=== PATIENT | female | born 1960 | race Caucasian/White ===

== ENCOUNTER 2018-03-19 00:19 | Emergency (ER) | payer SELFPAY ==
[2018-03-19] MEDS ORDERED: FLUORESCEIN SODIUM 0.6 MG/WRAP ONE (00:52)
[2018-03-19] MEDS ORDERED: TETRACAINE HCL 0.5% 2ML OPTH ONE (00:52)
--- NOTE | 2018-03-19 01:14 | ER ---
Nurse's Notes [facility] Name: Lorin Chamberlain Age: 58 yrs Sex: Female : 1960 Arrival Date: 03/19/2018 Time: 00:21 Bed 13 Private MD: Matthew Rosas T Diagnosis: Ocular pain, right eye Presentation: 03/19 00:54 Presenting complaint: Patient states: she was cleaning her face of make-up and rubbed bb her right eye then her right eye became red and very painful with throbbing down the side of her face to her lip. Transition of care: patient was not received from another setting of care. Onset of symptoms was March 19, 2018. Risk Assessment: Do you want to hurt yourself or someone else? Patient reports no desire to harm self or others. Initial Sepsis Screen: Does the patient meet any 2 criteria? No. Patient's initial sepsis screen is negative. Does the patient have a suspected source of infection? No. Patient's initial sepsis screen is negative. Care prior to arrival: None. 00:54 Method Of Arrival: Ambulatory bb 00:54 Acuity: SUSHIL 4 bb Historical: - Allergies: 00:56 No Known Allergies; bb - Home Meds: 00:56 None [Active]; bb - PMHx: 00:56 None; bb - PSHx: 00:56 macular pucker surgery right eye; bb - Immunization history:: Adult Immunizations up to date. - Social history:: Smoking status: Patient/guardian denies using tobacco. - Ebola Screening: : No symptoms or risks identified at this time. - Family history:: not pertinent. - Hospitalizations: : No recent hospitalization is reported. Screenin:00 Abuse screen: Denies threats or abuse. Nutritional screening: No deficits noted. jb4 Tuberculosis screening: No symptoms or risk factors identified. Fall Risk None identified. Assessment: 01:00 General: Appears in no apparent distress. uncomfortable, Behavior is calm, cooperative, jb4 appropriate for age. Pain: Complains of pain in right eye Pain currently is 6 out of 10 on a pain scale. Neuro: Level of Consciousness is awake, alert, obeys commands, Oriented to person, place, time, situation. Cardiovascular: Patient's skin is warm and dry. Respiratory: Airway is patent Respiratory effort is even, unlabored, Respiratory pattern is regular, symmetrical. GI: No signs and/or symptoms were reported involving the gastrointestinal system. : No signs and/or symptoms were reported regarding the genitourinary system. EENT: Sclera/Cornea are reddened in outer aspect of conjuctiva of right eye, iris of right eye and inner aspect of conjuctiva of right eye. Derm: Skin is intact, Skin is pink, warm \T\ dry. Musculoskeletal: Circulation, motion, and sensation intact. Vital Signs: 00:56 BP 149 / 91; Pulse 79; Resp 18 S; Temp 97.9(O); Pulse Ox 97% on R/A; Weight 101.15 kg bb (R); Height 5 ft. 7 in. (170.18 cm) (R); Pain 7/10; 00:56 Body Mass Index 34.93 (101.15 kg, 170.18 cm) bb ED Course: 00:21 Patient arrived in ED. es 00:22 Matthew Rosas MD is Private Physician. es 00:49 Jaylan Butts MD is Attending Physician. rn 00:56 Triage completed. bb 00:56 Arm band placed on Patient placed in an exam room, on a stretcher, on pulse oximetry. bb 01:00 Patient has correct armband on for positive identification. Bed in low position. Call jb4 light in reach. Pulse ox on. NIBP on. 01:13 Susana Renee MD is Referral Physician. rn 01:13 Jamal Victor RN is Primary Nurse. jb4 01:25 No provider procedures requiring assistance completed. Patient did not have IV access jb4 during this emergency room visit. Administered Medications: 00:00 Drug: Tetracaine Drops 0.5 % 1 drops Route: Ophthalmic; Site: right eye; bb 00:00 Drug: Fluorescein Strip 1 strip Route: Ophthalmic; Site: right eye; bb 01:32 Drug: Gentamicin Drops 0.3 % 2 drops Route: Ophthalmic; Site: right eye; jb4 01:35 Follow up: Response: No adverse reaction jb4 Outcome: 01:13 Discharge ordered by . rn 01:25 Discharged to home ambulatory. jb4 01:25 Condition: stable 01:25 Discharge instructions given to patient, Instructed on discharge instructions, follow up and referral plans. medication usage, Demonstrated understanding of instructions, follow-up care, medications, Prescriptions given X 1. 01:36 Patient left the ED. jb4 Signatures: Cookie Walden Brenda, RN RN bb Jaylan Butts MD MD rn Bryson, James, RN RN jb4
--- NOTE | 2018-03-19 01:14 | EDPHYS ---
Physician Documentation [facility] Name: Lorin Chamberlain Age: 58 yrs Sex: Female : 1960 Arrival Date: 03/19/2018 Time: 00:21 Bed 13 Private MD: Matthew Rosas T ED Physician Jaylan Butts HPI: 03/19 01:09 This 58 yrs old Female presents to ER via Ambulatory with complaints of Eye rn Problem. 01:09 The patient is experiencing redness, tearing, The patient sustained Unknown. to the rn right eye. Onset: The symptoms/episode began/occurred just prior to arrival. Duration: the symptoms are continuous. Aggravated by blinking, rubbing, Alleviated by covering eye. Severity of symptoms: At their worst the symptoms were moderate in the emergency department the symptoms have improved. The patient has not experienced similar symptoms in the past. Reports right eye hurts, began shortly after using makeup removal wipes, no trauma, began with redness and tearing, no contacts, left eye not affected. No visual changes. Hurts with light. . Historical: - Allergies: 00:56 No Known Allergies; bb - Home Meds: 00:56 None [Active]; bb - PMHx: 00:56 None; bb - PSHx: 00:56 macular pucker surgery right eye; bb - Immunization history:: Adult Immunizations up to date. - Social history:: Smoking status: Patient/guardian denies using tobacco. - Ebola Screening: : No symptoms or risks identified at this time. - Family history:: not pertinent. - Hospitalizations: : No recent hospitalization is reported. ROS: 01:09 Constitutional: Negative for fever, chills, and weight loss, Eyes: + pain and redness, rn + clear drainage ENT: Negative for injury, pain, and discharge, Neuro: Negative for headache, weakness, numbness, tingling, and seizure. Exam: 01:09 Visual Acuity: Visual acuity is within normal limits. rn 01:09 Constitutional: This is a well developed, well nourished patient who is awake, alert, and in no acute distress. Head/Face: Normocephalic, atraumatic. Eyes: + injected sclera with clear drainage, no foreign body identified, lids everted, no corneal uptake of fourescein, neg melyssa sign, no lesions Vital Signs: 00:56 BP 149 / 91; Pulse 79; Resp 18 S; Temp 97.9(O); Pulse Ox 97% on R/A; Weight 101.15 kg bb (R); Height 5 ft. 7 in. (170.18 cm) (R); Pain 7/10; 00:56 Body Mass Index 34.93 (101.15 kg, 170.18 cm) bb MDM: 00:49 Patient medically screened. rn 01:09 Differential diagnosis: Corneal abrasion of Foreign body in Acute iritis of rn Differential diagnosis: Chemical conjunctivitis in. Data reviewed: vital signs, nurses notes. Counseling: I had a detailed discussion with the patient and/or guardian regarding: the historical points, exam findings, and any diagnostic results supporting the discharge/admit diagnosis, the need for outpatient follow up, to return to the emergency department if symptoms worsen or persist or if there are any questions or concerns that arise at home. Special discussion: I discussed with the patient/guardian in detail that at this point there is no indication for admission to the hospital. It is understood, however, that if the symptoms persist or worsen the patient needs to return immediately for re-evaluation. Based on the history and exam findings, there is no indication for further emergent testing or inpatient evaluation. I discussed with the patient/guardian the need to see the opthamologist for further evaluation of the symptoms. 01:09 ED course: symptoms resolved with tetracaine. rn 03/19 01:08 Order name: Eye Tray; Complete Time: 01:09 Administered Medications: 00:00 Drug: Tetracaine Drops 0.5 % 1 drops Route: Ophthalmic; Site: right eye; bb 00:00 Drug: Fluorescein Strip 1 strip Route: Ophthalmic; Site: right eye; bb 01:32 Drug: Gentamicin Drops 0.3 % 2 drops Route: Ophthalmic; Site: right eye; jb4 01:35 Follow up: Response: No adverse reaction jb4 Disposition: 03/19/18 01:13 Discharged to Home. Impression: Ocular pain, right eye. - Condition is Stable. - Discharge Instructions: Chemical Conjunctivitis, Adult, How to Use Eye Drops and Eye Ointments. - Prescriptions for Vigamox 0.5 % Ophthalmic Drops - instill 1 drop by OPHTHALMIC route every 8 hours for 7 days; 5 milliliter. - Medication Reconciliation Form, Thank You Letter, Antibiotic Education, Prescription Opioid Use form. - Follow up: Susana Renee MD; When: Today; Reason: Recheck today's complaints, Re-evaluation by your physician. - Problem is new. - Symptoms have improved. Signatures: Yani Niño RN RN bb Jaylan Butts MD MD rn Bryson, James, RN RN jb4 Corrections: (The following items were deleted from the chart) 01:36 01:13 03/19/2018 01:13 Discharged to Home. Impression: Ocular pain, right eye. jb4 Condition is Stable. Forms are Medication Reconciliation Form, Thank You Letter, Antibiotic Education, Prescription Opioid Use. Follow up: Susana Renee; When: Today; Reason: Recheck today's complaints, Re-evaluation by your physician. Problem is new. Symptoms have improved. rn
[2018-03-19] MEDS ORDERED: TOBRAMYCIN SULF 80 MG/2 ML VIAL ONE (01:26)
[2018-03-19] MEDS ORDERED: GENTAMICIN 0.3% OPTH DROP 5ML ONE (01:27)
[2018-03-19 02:32] VITALS: BP 149/91; TEMP 97.9; O2SAT 97
== END 2018-03-19 01:36 | disposition home or self-care (01) ==
LOC: ER 00:19
DX: H57.11 Ocular pain, right eye (principal)
CPT/HCPCS: 99283

== ENCOUNTER 2019-05-13 05:15 | Emergency (ER) | payer SELFPAY ==
--- OUTSIDE RECORDS SUMMARY | 2019-05-13 05:16 | XMS REPORT ---
:1960 [facility] Address [address] [place] [address] [address]. [address] [place] [address] Care Team Providers Name Role Phone Unavailable Unavailable Unavailable Problems This patient has no known problems. Allergies, Adverse Reactions, Alerts This patient has no known allergies or adverse reactions. Medications This patient has no known medications.
[2019-05-13] MEDS ORDERED: OXYMETAZOLINE HCL 0.05% 15ML NAS ONE (05:18)
[2019-05-13] MEDS ORDERED: ONDANSETRON 4 MG (ODT) TAB ONE (05:29)
[2019-05-13] MEDS ORDERED: SILVER NITRATE 1 APPL TOP ONE (06:29)
--- NOTE | 2019-05-13 06:45 | EDPHYS ---
Physician Documentation [facility] Name: Lorin Chamberlain Age: 59 yrs Sex: Female : 1960 Arrival Date: 05/13/2019 Time: 05:15 Bed 20 Private MD: ED Physician Jaylan Butts HPI: 05/13 05:26 This 59 yrs old Female presents to ER via Unassigned with complaints of nose rn bleed. 05:26 The patient presents with a nose bleed. Onset: The symptoms/episode began/occurred 1 rn hour(s) ago. Modifying factors: The symptoms are alleviated by nothing. the symptoms are aggravated by nothing. Severity of symptoms: At their worst the symptoms were mild in the emergency department the symptoms are unchanged. The patient has not experienced similar symptoms in the past. Reports approx 1 hour of nose bleeding, worse with blowing nose, reports intermittent clot comes out, hasn't really been holding pressure as much as catching her blood, on aspirin but hasn't taken in a couple of days. No other blood thinner. No trauma. This is her first nosebleed. . Historical: - Allergies: 05:36 No Known Allergies; - Home Meds: 05:36 duloxetine oral oral [Active]; atorvastatin oral oral [Active]; - PMHx: 05:36 High Cholesterol; Fibromyalgia; Rheumatoid Arthritis; - PSHx: 05:36 Cataract Surgery; Cholecystectomy; - Immunization history:: Adult Immunizations not up to date. - Coronavirus screen:: The patient has NOT traveled to [place], [place], or [place] in the past 14 days. - Family history:: not pertinent. - Social history:: Smoking status: Patient/guardian denies using. - Hospitalizations: : No recent hospitalization is reported. - Ebola Screening: : Patient negative for fever greater than or equal to 101.5 degrees Fahrenheit, and additional compatible Ebola Virus Disease symptoms Patient denies exposure to infectious person. ROS: 05:26 Constitutional: Negative for fever, chills, and weight loss, Eyes: Negative for injury, rn pain, redness, and discharge, ENT: + nosebleed Cardiovascular: Negative for chest pain, palpitations, and edema, Respiratory: Negative for shortness of breath, cough, wheezing, and pleuritic chest pain, Abdomen/GI: Negative for abdominal pain, nausea, vomiting, diarrhea, and constipation, MS/Extremity: Negative for injury and deformity, Skin: Negative for injury, rash, and discoloration, Neuro: Negative for headache, weakness, numbness, tingling, and seizure. Exam: 05:26 Constitutional: This is a well developed, well nourished patient who is awake, alert, rn and in no acute distress. Appears anxious. Head/Face: Normocephalic, atraumatic. ENT: + slow bleed from left nare with clot Cardiovascular: Regular rate and rhythm. No pulse deficits. Respiratory: No increased work of breathing, no retractions or nasal flaring. Vital Signs: 05:36 BP 140 / 97; Pulse 82; Resp 18; Temp 98; Pulse Ox 99% ; Weight 104.33 kg; Height 5 ft. wh 7 in. (170.18 cm); 06:30 BP 126 / 74; Pulse 70; Resp 18; Pulse Ox 99% on R/A; wh 05:36 Body Mass Index 36.02 (104.33 kg, 170.18 cm) Procedures: 06:29 Epistaxis treatment: A small amount of bleeding noted from Treated using Oxymetazoline rn sprays, cauterization, silver nitrate, direct pressure, nasal clamp, Bleeding stopped. MDM: 05:25 Patient medically screened. rn 06:29 Differential diagnosis: spontaneous epistaxis. Data reviewed: vital signs, nurses rn notes, and as a result, I will discharge patient. Counseling: I had a detailed discussion with the patient and/or guardian regarding: the historical points, exam findings, and any diagnostic results supporting the discharge/admit diagnosis, the need for outpatient follow up, to return to the emergency department if symptoms worsen or persist or if there are any questions or concerns that arise at home. Response to treatment: the patient's symptoms have resolved after treatment, and as a result, I will discharge patient. Special discussion: I discussed with the patient/guardian in detail that at this point there is no indication for admission to the hospital. It is understood, however, that if the symptoms persist or worsen the patient needs to return immediately for re-evaluation. Based on the history and exam findings, there is no indication for further emergent testing or inpatient evaluation. I discussed with the patient/guardian the need to see the ENT specialist for further evaluation of the symptoms. 06:43 ED course: bleeding stopped, feels much better. will dc home with instructions to care rn for nosebleed if returns. Also needs to f/u with ENT.. Administered Medications: 05:31 Drug: Zofran 4 mg Route: PO; wh 06:49 Follow up: Response: No adverse reaction; Nausea is decreased Disposition: 05/13/19 06:44 Discharged to Home. Impression: Epistaxis. - Condition is Stable. - Discharge Instructions: Nosebleed, Adult. - Medication Reconciliation Form, Thank You Letter, Antibiotic Education, Prescription Opioid Use form. - Follow up: Dana Chairez MD; When: As needed; Reason: Recheck today's complaints, Re-evaluation by your physician. - Problem is new. - Symptoms are resolved. Signatures: Jaylan Butts MD MD rn Habalo, Winsy Corrections: (The following items were deleted from the chart) 06:51 06:44 05/13/2019 06:44 Discharged to Home. Impression: Epistaxis. Condition is Stable. wh Forms are Medication Reconciliation Form, Thank You Letter, Antibiotic Education, Prescription Opioid Use. Follow up: Dana Chairez; When: As needed; Reason: Recheck today's complaints, Re-evaluation by your physician. Problem is new. Symptoms are resolved. rn
--- NOTE | 2019-05-13 06:45 | ER ---
Nurse's Notes [facility] Name: Lorin Chamberlain Age: 59 yrs Sex: Female : 1960 Arrival Date: 05/13/2019 Time: 05:15 Bed 20 Private MD: Diagnosis: Epistaxis Presentation: 05/13 05:32 Presenting complaint: EMS states: Pt started nose bleeding at around 4:00 am and wh wouldn't stopped. Pt denies taking blood thinners but takes baby aspirin everyday. Transition of care: patient was not received from another setting of care. Onset of symptoms was May 13, 2019. Risk Assessment: Do you want to hurt yourself or someone else? Patient reports no desire to harm self or others. Initial Sepsis Screen: Does the patient meet any 2 criteria? No. Patient's initial sepsis screen is negative. Does the patient have a suspected source of infection? No. Patient's initial sepsis screen is negative. Care prior to arrival: None. 05:32 Method Of Arrival: EMS: [facility] 05:32 Acuity: SUSHIL 4 Historical: - Allergies: 05:36 No Known Allergies; - Home Meds: 05:36 duloxetine oral oral [Active]; atorvastatin oral oral [Active]; - PMHx: 05:36 High Cholesterol; Fibromyalgia; Rheumatoid Arthritis; - PSHx: 05:36 Cataract Surgery; Cholecystectomy; - Immunization history:: Adult Immunizations not up to date. - Coronavirus screen:: The patient has NOT traveled to [place], [place], or [place] in the past 14 days. - Family history:: not pertinent. - Social history:: Smoking status: Patient/guardian denies using. - Hospitalizations: : No recent hospitalization is reported. - Ebola Screening: : Patient negative for fever greater than or equal to 101.5 degrees Fahrenheit, and additional compatible Ebola Virus Disease symptoms Patient denies exposure to infectious person. Screenin:37 Abuse screen: Denies threats or abuse. Denies injuries from another. Nutritional screening: No deficits noted. Tuberculosis screening: No symptoms or risk factors identified. Fall Risk None identified. Assessment: 05:38 General: Appears in no apparent distress. Behavior is calm, cooperative, appropriate wh for age. Pain: Denies pain. Neuro: Level of Consciousness is awake, alert, obeys commands, Oriented to person, place, time, situation, Appropriate for age. Cardiovascular: Capillary refill < 3 seconds. Respiratory: Airway is patent Respiratory effort is even, unlabored, Respiratory pattern is regular, symmetrical. GI: Abdomen is flat, non-distended. : No signs and/or symptoms were reported regarding the genitourinary system. EENT: nose bleed. Derm: Skin is intact, is healthy with good turgor, Skin is pink, warm \T\ dry. normal. Musculoskeletal: Circulation, motion, and sensation intact. 06:30 Reassessment: Patient appears in no apparent distress at this time. No changes from previously documented assessment. Patient and/or family updated on plan of care and expected duration. Pain level reassessed. Patient is alert, oriented x 3, equal unlabored respirations, skin warm/dry/pink. MD at bedside applying silver nitrate. Vital Signs: 05:36 BP 140 / 97; Pulse 82; Resp 18; Temp 98; Pulse Ox 99% ; Weight 104.33 kg; Height 5 ft. 7 in. (170.18 cm); 06:30 BP 126 / 74; Pulse 70; Resp 18; Pulse Ox 99% on R/A; wh 05:36 Body Mass Index 36.02 (104.33 kg, 170.18 cm) ED Course: 05:15 Patient arrived in ED. ds1 05:25 Jaylan Butts MD is Attending Physician. rn 05:31 Thea Washington is Primary Nurse. 05:34 Triage completed. 05:37 Patient has correct armband on for positive identification. Bed in low position. Call light in reach. Side rails up X 1. Pulse ox on. NIBP on. 05:39 Arm band placed on right wrist. 05:39 No provider procedures requiring assistance completed. Patient did not have IV access during this emergency room visit. 06:44 Dana Chairez MD is Referral Physician. rn Administered Medications: 05:31 Drug: Zofran 4 mg Route: PO; 06:49 Follow up: Response: No adverse reaction; Nausea is decreased Outcome: 06:44 Discharge ordered by MD. rn 06:51 Discharged to home ambulatory. 06:51 Condition: stable 06:51 Discharge instructions given to patient, Instructed on discharge instructions, follow up and referral plans. POC Demonstrated understanding of instructions, follow-up care, POC 06:51 Patient left the ED. Signatures: Padmini Guerrero ds1 Jaylan Butts MD MD rn Thea Washington
[2019-05-13 07:10] VITALS: TEMP 98; O2SAT 99
[2019-05-13 07:11] VITALS: BP 126/74
== END 2019-05-13 06:51 | disposition home or self-care (01) ==
LOC: ER 05:15
DX: R04.0 Epistaxis (principal); E78.00 Pure hypercholesterolemia, unspecified
CPT/HCPCS: 30901; 99283

== ENCOUNTER 2020-02-23 09:12 | Emergency (ER) | payer SELFPAY ==
--- OUTSIDE RECORDS SUMMARY | 2020-02-23 09:14 | XMS REPORT | Continuity of Care Document ---
:1960 Author Organization [facility] t Address [address] [place] [address] Dr. Esposito [address] [place] [id number] Care Team Providers Name Role Phone Unavailable Unavailable Unavailable Problems This patient has no known problems. Allergies, Adverse Reactions, Alerts This patient has no known allergies or adverse reactions. Medications This patient has no known medications. Procedures This patient has no known procedures. Results This patient has no known results.
[2020-02-23] MEDS ORDERED: BISACODYL 10 MG RECTAL SUPP ONE (10:02)
[2020-02-23] MEDS ORDERED: NA CHLORIDE 0.9% 1,000 ML ONE (10:03)
[2020-02-23] MEDS ORDERED: LACTULOSE 20 GM/30 ML UCUP ONE (10:03)
[2020-02-23 10:06] LABS: Absolute Lymphocytes (CBC) 1.6 K/uL (0.7-4.9); Basophils % 0.5 % (0-1.3); Hematocrit 40.3 % (36.0-45.0); Lymphocytes % 27.1 % (15.3-44.8); MPV 8.1 fL (7.6-11.3); RBC Red Blood Cell Count 4.49 M/uL (3.86-4.86)
[2020-02-23 10:33] LABS: ALT/SGPT 24 U/L (12-78); AST/SGOT 15 U/L (15-37); Albumin 3.7 g/dL (3.4-5.0); Alkaline Phosphatase 73 U/L (45-117); BUN Blood Urea Nitrogen 20 mg/dL (7-18); Bicarbonate 24 mmol/L (21-32); Bilirubin Direct < 0.1 mg/dL (0-0.2); Bilirubin Total 0.5 mg/dL (0.2-1.0); Glucose Level 92 mg/dL (74-106); Lipase 87 U/L (73-393); Magnesium 2.3 mg/dL (1.8-2.4); NT PRO-BNP 172 pg/mL (<125); Protein, Total 7.4 g/dL (6.4-8.2); Sodium Level 140 mmol/L (136-145); Troponin (Emerg Dept Use Only) < 0.02 ng/mL (0.0-0.045)
[2020-02-23 11:48] LABS: Urine Blood NEGATIVE (NEG); Urine Glucose NEGATIVE (NEG); Urine Protein NEGATIVE (NEG); Urine Specific Gravity 1.015 (1.005-1.030); Urine pH 6.5 (5.0-7.0)
--- NOTE | 2020-02-23 11:56 | RAD REPORT ---
EXAM DESCRIPTION: CT - Chest Abdomen Pelvis W Cont - 02/23/2020 11:46 am CLINICAL HISTORY: Chest and abdomen pain. Chest pain;Abdominal distention COMPARISON: No comparisons TECHNIQUE: Approximately 100 mL nonionic IV contrast was administered to the patient. All CT scans are performed using dose optimization technique as appropriate and may include automated exposure control or mA/KV adjustment according to patient size. FINDINGS: The lungs are clear.No pleural or pericardial effusion.No intrathoracic adenopathy. The liver, spleen, pancreas, adrenal glands and kidneys are within normal limits. Cholecystectomy No bowel obstruction, free air, free fluid or abscess. Normal appendix. Sigmoid diverticulosis coli i s present with moderate fecal retention. No pathologic lymphadenopathy in the abdomen or pelvis. No worrisome osseous finding. Tiny urinary bladder air bubble. IMPRESSION: Sigmoid diverticulosis coli is present with moderate fecal retention. Tiny urinary bladder air bubble seen. Advise correlation with urinalysis.
--- NOTE | 2020-02-23 12:01 | EDPHYS ---
Physician Documentation [facility] Name: Lorin Chamberlain Age: 59 yrs Sex: Female : 1960 Arrival Date: 02/23/2020 Time: 09:16 Bed 8 Private MD: ED Physician Shantanu Dunlap HPI: 02/22 09:38 This 59 yrs old Female presents to ER via Ambulatory with complaints of Back evangelina Pain, Headache, Abdominal Pain. 09:38 The patient presents with pain that is acute, with no known mechanism of injury. The evangelina symptoms are located in the thoracic area. Onset: The symptoms/episode began/occurred 3 day(s) ago. Historical: - Allergies: :44 No Known Allergies; iw - Home Meds: :44 None [Active]; iw - PMHx: :44 Fibromyalgia; High Cholesterol; Rheumatoid Arthritis; iw - PSHx: :44 Cataract Surgery; Cholecystectomy; Hysterectomy; iw - Immunization history:: Adult Immunizations not up to date. - Social history:: Smoking status: Patient denies any tobacco usage or history of. - Family history:: not pertinent. ROS: 09:39 Constitutional: Negative for fever, chills, and weight loss, Eyes: Negative for injury, evangelina pain, redness, and discharge, ENT: Negative for injury, pain, and discharge, Neck: Negative for injury, pain, and swelling, Respiratory: Negative for shortness of breath, cough, wheezing, and pleuritic chest pain, : Negative for injury, bleeding, discharge, and swelling, MS/Extremity: Negative for injury and deformity, Skin: Negative for injury, rash, and discoloration, Neuro: Negative for headache, weakness, numbness, tingling, and seizure, Psych: Negative for depression, anxiety, suicide ideation, homicidal ideation, and hallucinations, Allergy/Immunology: Negative for hives, rash, and allergies, Endocrine: Negative for neck swelling, polydipsia, polyuria, polyphagia, and marked weight changes, Hematologic/Lymphatic: Negative for swollen nodes, abnormal bleeding, and unusual bruising. 09:39 Cardiovascular: Positive for chest pain, of the chest. 09:39 Respiratory: Positive for cough, with no reported sputum. 09:39 Abdomen/GI: Positive for abdominal pain, of the right upper quadrant, left upper quadrant, right lower quadrant and left lower quadrant. 09:39 Back: Positive for pain at rest, pain with movement, of the thoracic area. Exam: 09:39 Constitutional: This is a well developed, well nourished patient who is awake, alert, evangelina and in no acute distress. Head/Face: Normocephalic, atraumatic. Eyes: Pupils equal round and reactive to light, extra-ocular motions intact. Lids and lashes normal. Conjunctiva and sclera are non-icteric and not injected. Cornea within normal limits. Periorbital areas with no swelling, redness, or edema. ENT: Nares patent. No nasal discharge, no septal abnormalities noted. Tympanic membranes are normal and external auditory canals are clear. Oropharynx with no redness, swelling, or masses, exudates, or evidence of obstruction, uvula midline. Mucous membranes moist. Neck: Trachea midline, no thyromegaly or masses palpated, and no cervical lymphadenopathy. Supple, full range of motion without nuchal rigidity, or vertebral point tenderness. No Meningismus. Chest/axilla: Normal chest wall appearance and motion. Nontender with no deformity. No lesions are appreciated. Cardiovascular: Regular rate and rhythm with a normal S1 and S2. No gallops, murmurs, or rubs. Normal PMI, no JVD. No pulse deficits. Respiratory: Lungs have equal breath sounds bilaterally, clear to auscultation and percussion. No rales, rhonchi or wheezes noted. No increased work of breathing, no retractions or nasal flaring. Abdomen/GI: Soft, non-tender, with normal bowel sounds. No distension or tympany. No guarding or rebound. No evidence of tenderness throughout. Back: No spinal tenderness. No costovertebral tenderness. Full range of motion. Female : Normal external genitalia. Skin: Warm, dry with normal turgor. Normal color with no rashes, no lesions, and no evidence of cellulitis. MS/ Extremity: Pulses equal, no cyanosis. Neurovascular intact. Full, normal range of motion. Neuro: Awake and alert, GCS 15, oriented to person, place, time, and situation. Cranial nerves II-XII grossly intact. Motor strength 5/5 in all extremities. Sensory grossly intact. Cerebellar exam normal. Normal gait. Psych: Awake, alert, with orientation to person, place and time. Behavior, mood, and affect are within normal limits. 10:12 ECG was reviewed by the Attending Physician. [facility] Vital Signs: 09:42 BP 112 / 63; Pulse 66; Resp 16 S; Temp 97.3; Pulse Ox 100% on R/A; Weight 107.05 kg; iw Height 5 ft. 7 in. (170.18 cm); Pain 9/10; 09:42 Body Mass Index 36.96 (107.05 kg, 170.18 cm) iw MDM: 09:18 Patient medically screened. evangelina 09:43 Differential diagnosis: Cholelithiasis chronic back pain, Fatigue Fracture Obesity evangelina Osteoarthritis Peptic Ulcer Perforated Ulcer Scoliosis sprain, AAA, bowel obstruction, diverticulitis, Irritable bowel syndrome, non-specific abd pain, pancreatitis, Pyelonephritis, Ureterolithiasis. Data reviewed: vital signs, nurses notes. Data interpreted: color television console monitor: rate is 66 beats/min, rhythm is regular, Pulse oximetry: is not applicable for this patient encounter. Test interpretation: by ED physician or midlevel provider: ECG, plain radiologic studies. Counseling: I had a detailed discussion with the patient and/or guardian regarding: the historical points, exam findings, and any diagnostic results supporting the discharge/admit diagnosis, lab results, radiology results. 02/22 09:38 Order name: Basic Metabolic Panel; Complete Time: 10:38 [facility] 02/22 09:38 Order name: CBC with Diff; Complete Time: 10:38 [facility] 02/22 09:38 Order name: LFT's; Complete Time: 10:38 [facility] 02/22 09:38 Order name: Magnesium; Complete Time: 10:38 [facility] 02/22 09:38 Order name: NT PRO-BNP; Complete Time: 10:38 [facility] 02/22 09:38 Order name: Troponin (emerg Dept Use Only); Complete Time: 10:38 [facility] 02/22 09:38 Order name: XRAY Chest (1 view); Complete Time: 12:35 [facility] 02/22 09:38 Order name: Lipase; Complete Time: 10:38 [facility] 02/22 09:38 Order name: CT Chest, Abdomen, Pelvis - W/Contrast: oral and iv; Complete Time: 12:00 [facility] 02/22 09:38 Order name: Sed Rate; Complete Time: 10:38 [facility] 02/22 11:37 Order name: Urine Dipstick--Ancillary (enter results); Complete Time: 12:00 02/22 09:38 Order name: EKG; Complete Time: 09:39 [facility] 02/22 09:38 Order name: Cardiac monitoring; Complete Time: 10:03 [facility] 02/22 09:38 Order name: EKG - Nurse/Tech; Complete Time: 10:03 [facility] 02/22 09:38 Order name: IV Saline Lock; Complete Time: 09:53 [facility] 02/22 09:38 Order name: Labs collected and sent; Complete Time: 09:53 [facility] 02/22 09:38 Order name: O2 Per Protocol; Complete Time: 09:53 [facility] 02/22 09:38 Order name: O2 Sat Monitoring; Complete Time: 09:53 [facility] 02/22 09:38 Order name: Urine Dipstick-Ancillary (obtain specimen); Complete Time: 11:31 [facility] EC:12 Rate is 62 beats/min. Rhythm is regular. QRS [place] is Normal. AL interval is normal. QRS evangelina interval is normal. QT interval is normal. No Q waves. T waves are Normal. No ST changes noted. Clinical impression: Normal ECG and No evidence of ischemia. Interpreted by me. Reviewed by me. Administered Medications: 09:56 Drug: NS 0.9% 1000 ml Route: IV; Rate: 1 bolus; Site: left antecubital; em 12:48 Follow up: IV Status: Completed infusion; IV Intake: 1000ml em 13:12 Drug: Rocephin 1 grams Route: IV; Rate: per protocol; Site: left antecubital; em 13:18 Follow up: Response: Medication administered at discharge.; IV Status: Completed em infusion; IV Intake: 10ml 13:12 Drug: Cipro 500 mg Route: PO; em 13:18 Follow up: Response: Medication administered at discharge. em 13:13 Drug: Lactulose 30 grams Volume: 45 ml; Route: PO; em 13:17 Follow up: Response: Medication administered at discharge. em 13:13 Drug: Dulcolax Suppository 10 mg Route: AL; em 13:18 Follow up: Response: Medication administered at discharge. em Disposition: 02/23/20 12:01 Discharged to Home. Impression: Low back pain, Strain of muscle and tendon of back wall of thorax, Constipation, Malaise and fatigue, Urinary tract infection, site not specified, Diverticular disease of intestine. - Condition is Stable. - Discharge Instructions: Back Pain, Adult, Constipation, Adult, Diverticulosis, Musculoskeletal Pain, Urinary Tract Infection, Adult, Weakness, Urinary Tract Infection, Adult, [id number], Back Pain, Adult, [id number]. - Prescriptions for Dulcolax 10 mg Rectal Suppository - insert 1 suppository by RECTAL route every 12 hours As needed; 10 suppository. Miralax 17 gram/dose Oral - take 1 packet by ORAL route once daily dilute powder in 8 ounces of water or juice; 14 packet. Lactulose 10 gram/15 mL Oral Solution - take 30 milliliters by ORAL route once daily; 200 milliliter. Cipro 250 mg Oral Tablet - take 1 tablet by ORAL route every 12 hours; 14 tablet. Medrol (Adam) 4 mg Oral Tablets, Dose Pack - take 1 tablet by ORAL route as directed - follow package instructions; 1 packet. - Medication Reconciliation Form, Thank You Letter, Antibiotic Education, Prescription Opioid Use form. - Follow up: Private Physician; When: 2 - 3 days; Reason: Recheck today's complaints, Continuance of care, Re-evaluation by your physician. Follow up: aBlaji Armando MD; When: 2 - 3 days; Reason: Recheck today's complaints, Re-evaluation by your physician. - Problem is new. - Symptoms have improved. Signatures: Dispatcher [employer] Shantanu Paredes MD MD cha Munoz, Edgar, SANDRA RN Becky Melendez RN RN iw Corrections: (The following items were deleted from the chart) 12:39 12:01 02/23/2020 12:01 Discharged to Home. Impression: Low back pain; Strain of muscle evangelina and tendon of back wall of thorax; Constipation; Malaise and fatigue. Condition is Stable. Discharge Instructions: Back Pain, Adult, Constipation, Adult, Musculoskeletal Pain, Weakness, Back Pain, Adult, [id number]. Prescriptions for Dulcolax 10 mg Rectal Suppository - insert 1 suppository by RECTAL route every 12 hours As needed; 10 suppository, Miralax 17 gram/dose Oral - take 1 packet by ORAL route once daily dilute powder in 8 ounces of water or juice; 14 packet. and Forms are Medication Reconciliation Form, Thank You Letter, Antibiotic Education, Prescription Opioid Use. Follow up: Private Physician; When: 2 - 3 days; Reason: Recheck today's complaints, Continuance of care, Re-evaluation by your physician. Follow up: Balaji Armando; When: 2 - 3 days; Reason: Recheck today's complaints, Re-evaluation by your physician. Problem is new. Symptoms have improved. [facility] 13:18 12:39 02/23/2020 12:01 Discharged to Home. Impression: Low back pain; Strain of muscle em and tendon of back wall of thorax; Constipation; Malaise and fatigue; Urinary tract infection, site not specified; Diverticular disease of intestine. Condition is Stable. Discharge Instructions: Back Pain, Adult, Constipation, Adult, Musculoskeletal Pain, Weakness, Back Pain, Adult, [id number]. Prescriptions for Dulcolax 10 mg Rectal Suppository - insert 1 suppository by RECTAL route every 12 hours As needed; 10 suppository, Miralax 17 gram/dose Oral - take 1 packet by ORAL route once daily dilute powder in 8 ounces of water or juice; 14 packet, Lactulose 10 gram/15 mL Oral Solution - take 30 milliliters by ORAL route once daily; 200 milliliter. and Forms are Medication Reconciliation Form, Thank You Letter, Antibiotic Education, Prescription Opioid Use. Follow up: Private Physician; When: 2 - 3 days; Reason: Recheck today's complaints, Continuance of care, Re-evaluation by your physician. Follow up: Balaji Armando; When: 2 - 3 days; Reason: Recheck today's complaints, Re-evaluation by your physician. Problem is new. Symptoms have improved. [facility]
--- NOTE | 2020-02-23 12:01 | ER ---
Nurse's Notes [facility] Name: Lorin Chamberlain Age: 59 yrs Sex: Female : 1960 Arrival Date: 02/23/2020 Time: 09:16 Bed 8 Private MD: Diagnosis: Low back pain;Strain of muscle and tendon of back wall of thorax;Constipation;Malaise and fatigue;Urinary tract infection, site not specified;Diverticular disease of intestine Presentation: 02/22 09:30 Chief complaint: Patient states: has been having abd pains after she eats and having a iw hard time with BM, also is having mid back pain since last Monday, also has some mild headaches and she is having a lot of inflammation in her joints. Coronavirus screen: At this time, the client does not indicate any symptoms associated with coronavirus-19. Ebola Screen: Patient negative for fever greater than or equal to 101.5 degrees Fahrenheit, and additional compatible Ebola Virus Disease symptoms Patient denies exposure to infectious person. Patient denies travel to an Ebola-affected area in the 21 days before illness onset. No symptoms or risks identified at this time. Initial Sepsis Screen: Does the patient meet any 2 criteria? No. Patient's initial sepsis screen is negative. Does the patient have a suspected source of infection? No. Patient's initial sepsis screen is negative. Risk Assessment: Do you want to hurt yourself or someone else? Patient reports no desire to harm self or others. Onset of symptoms was February 19, 2020. 09:30 Method Of Arrival: Ambulatory iw 09:30 Acuity: SUSHIL 3 iw Historical: - Allergies: 09:44 No Known Allergies; iw - Home Meds: 09:44 None [Active]; iw - PMHx: 09:44 Fibromyalgia; High Cholesterol; Rheumatoid Arthritis; iw - PSHx: 09:44 Cataract Surgery; Cholecystectomy; Hysterectomy; iw - Immunization history:: Adult Immunizations not up to date. - Social history:: Smoking status: Patient denies any tobacco usage or history of. - Family history:: not pertinent. Screenin:59 Abuse screen: Denies threats or abuse. Nutritional screening: No deficits noted. em Tuberculosis screening: No symptoms or risk factors identified. Fall Risk None identified. Assessment: 09:50 General: Appears in no apparent distress. comfortable, Behavior is calm, cooperative, em appropriate for age, Denies fever. Pain: Complains of pain in abdomen and chest and thoracic area Pain radiates to thoracic area Pain currently is 9 out of 10 on a pain scale. Neuro: Level of Consciousness is awake, alert, obeys commands, Oriented to person, place, time, situation, Appropriate for age Reports headache. Cardiovascular: Capillary refill < 3 seconds Patient's skin is warm and dry. Respiratory: Airway is patent Respiratory effort is even, unlabored, Respiratory pattern is regular, symmetrical. GI: Reports nausea, reports having a soft BM today Patient currently denies vomiting. Derm: Skin is intact, is healthy with good turgor, Skin is pink, warm \T\ dry. Musculoskeletal: Capillary refill < 3 seconds, Range of motion: intact in all extremities. 09:56 Reassessment: pt request to hold off on laxatives, states she would rather wait until em after the CT report. 11:14 Reassessment: Patient appears in no apparent distress at this time. Patient and/or em family updated on plan of care and expected duration. Pain level reassessed. Patient is alert, oriented x 3, equal unlabored respirations, skin warm/dry/pink. 11:53 Reassessment: Patient appears in no apparent distress at this time. returned from CT. em 12:50 Reassessment: Dr. Dunlap at bedside discussing results. em 13:00 Reassessment: pt request T3 for her joint pain, Dr. Dunlap notified, will send pt em home with a steroid. Vital Signs: 09:42 BP 112 / 63; Pulse 66; Resp 16 S; Temp 97.3; Pulse Ox 100% on R/A; Weight 107.05 kg; iw Height 5 ft. 7 in. (170.18 cm); Pain 9/10; 09:42 Body Mass Index 36.96 (107.05 kg, 170.18 cm) iw ED Course: 09:16 Patient arrived in ED. mr 09:18 Shantanu Dunlap MD is Attending Physician. evangelina 09:33 Triage completed. iw 09:41 Cory Love, SANDRA is Primary Nurse. em 09:41 Arm band placed on. iw 09:48 Initial lab(s) drawn, by me, sent to lab. Inserted saline lock: 20 gauge in left dh3 antecubital area, using aseptic technique. Blood collected. 09:57 Patient has correct armband on for positive identification. Placed in gown. Bed in low em position. Call light in reach. Side rails up X2. Pulse ox on. NIBP on. 10:03 EKG done, by ED staff, reviewed by Shantanu Dunlap MD. dh3 10:37 XRAY Chest (1 view) In Process Unspecified. EDMS 11:31 Urine collected: clean catch specimen, clear. dh3 11:46 CT Chest, Abdomen, Pelvis - W/Contrast: oral and iv In Process Unspecified. EDMS 12:01 Balaji Armando MD is Referral Physician. evangelina 12:51 No provider procedures requiring assistance completed. em 13:16 IV discontinued, intact, bleeding controlled, No redness/swelling at site. Pressure em dressing applied. Administered Medications: 09:56 Drug: NS 0.9% 1000 ml Route: IV; Rate: 1 bolus; Site: left antecubital; em 12:48 Follow up: IV Status: Completed infusion; IV Intake: 1000ml em 13:12 Drug: Rocephin 1 grams Route: IV; Rate: per protocol; Site: left antecubital; em 13:18 Follow up: Response: Medication administered at discharge.; IV Status: Completed em infusion; IV Intake: 10ml 13:12 Drug: Cipro 500 mg Route: PO; em 13:18 Follow up: Response: Medication administered at discharge. em 13:13 Drug: Lactulose 30 grams Volume: 45 ml; Route: PO; em 13:17 Follow up: Response: Medication administered at discharge. em 13:13 Drug: Dulcolax Suppository 10 mg Route: MD; em 13:18 Follow up: Response: Medication administered at discharge. em Intake: 12:48 IV: 1000ml; Total: 1000ml. em 13:18 IV: 10ml; Total: 1010ml. em Outcome: 12:01 Discharge ordered by . evangelina 13:14 Discharged to home ambulatory. em 13:14 Condition: stable 13:14 Discharge instructions given to patient, Instructed on discharge instructions, follow up and referral plans. medication usage, Demonstrated understanding of instructions, follow-up care, medications, Prescriptions given X 5 13:18 Patient left the ED. em Signatures: Dispatcher [employer] EDShantanu Richardson MD MD cha Rivera, Mary mr Munoz, Edgar, RN RN Becky Melendez, RN RN arablela Chairez, Melissa 3
--- NOTE | 2020-02-23 12:19 | RAD REPORT ---
EXAM DESCRIPTION: RAD - Chest Single View - 02/23/2020 10:37 am CLINICAL HISTORY: Chest pain;Abdominal distention Chest pain. COMPARISON: Chest Pa And Lat (2 Views) dated 02/21/2016; CHEST SINGLE VIEW dated 08/12/2014 FINDINGS: Portable technique limits examination quality. The lungs are grossly clear. The heart is normal in size. No displaced fractures. IMPRESSION: No acute intrathoracic process suspected.
[2020-02-23] MEDS ORDERED: CIPROFLOXACIN HCL 500 MG TAB ONE (13:05)
[2020-02-23] MEDS ORDERED: CEFTRIAXONE/SWI 1gm 1 GM/10 ML SYR ONE (13:06)
[2020-02-23 13:37] VITALS: BP 112/63; TEMP 97.3; O2SAT 100
--- NOTE | 2020-02-24 07:25 | EKG ---
Test Date: 2020-02-23 Test Time: 09:59:27 Shared Services And Outsourcing Manager: JARED MEASUREMENT RESULTS: Intervals: Rate: 62 NE: 166 QRSD: 88 QT: 442 QTc: 448 Woodruff: P: 46 NE: 166 QRS: 22 T: 28 INTERPRETIVE STATEMENTS: Normal sinus rhythm Normal ECG Compared to ECG 08/12/2014 17:49:06 ST (T wave) deviation no longer present Electronically Signed On 02-24-20 07:23:30 HOSPITAL CLERK by Drew Molina
== END 2020-02-23 13:18 | disposition home or self-care (01) ==
LOC: ER 09:12
DX: S29.012A Strain of muscle and tendon of back wall of thorax, initial encounter (principal); N39.0 Urinary tract infection, site not specified; K59.00 Constipation, unspecified; K57.30 Diverticulosis of large intestine without perforation or abscess without bleeding; R53.81 Other malaise; R53.83 Other fatigue; E78.00 Pure hypercholesterolemia, unspecified
CPT/HCPCS: 36415; 71045; 71260; 74177; 80048; 80076; 81003; 83690; 83735; 83880; 84484; 85025; 85652; 93005; 96361; 96374; 99284; J0696; J7030; Q9967

== ENCOUNTER 2021-06-01 05:32 | Inpatient (IN) | payer SELFPAY ==
[2021-05-27 09:09] LABS: Absolute Lymphocytes (CBC) 1.8 K/uL (0.7-4.9); Hematocrit 39.6 % (36.0-45.0); Lymphocytes % 32.4 % (15.3-44.8); MPV 7.4 fL (7.6-11.3); RBC Red Blood Cell Count 4.29 M/uL (3.86-4.86)
[2021-05-27 09:22] LABS: Protime INR 0.88
[2021-05-27 09:33] LABS: Albumin 3.4 g/dL (3.4-5.0); Bilirubin Total 0.3 mg/dL (0.2-1.0); Potassium 4.4 mmol/L (3.5-5.1); Protein, Total 7.3 g/dL (6.4-8.2)
--- NOTE | 2021-05-27 09:41 | RAD REPORT ---
EXAM DESCRIPTION: RAD - Chest Pa And Lat (2 Views) - 05/27/2021 8:59 am CLINICAL HISTORY: pre op pending knee surgery Chest pain. COMPARISON: Chest Single View dated 02/23/2020; Chest Pa And Lat (2 Views) dated 02/21/2016; CHEST SIN GLE VIEW dated 08/12/2014 FINDINGS: The lungs are clear. The heart is normal in size. No displaced fractures. IMPRESSION: No acute or concerning finding suspected.
[2021-05-27 09:52] LABS: Urine Appearance CLEAR (Clear); Urine Bilirubin NEGATIVE (Negative); Urine Blood NEGATIVE (Negative); Urine Color YELLOW (Yellow); Urine Glucose NEGATIVE (Negative); Urine Microscopic Reflex ORDER UMIC; Urine Protein NEGATIVE (Negative); Urine Urobilinogen 0.2 mg/dL (0.2-1.0)
[2021-05-27 10:42] LABS: Urine Bacteria NONE SEEN /HPF (<20); Urine RBC NONE SEEN /HPF (NONE SEEN)
[2021-06-01] MEDS ORDERED: GABAPENTIN 100 MG CAP ONE (06:03)
[2021-06-01] MEDS ORDERED: Oxycodone HCl/Acetaminophen 1 TAB TAB ONE (06:04)
[2021-06-01] MEDS ORDERED: NA CHLORIDE 0.9% 1,000 ML ONE (06:04)
[2021-06-01] MEDS ORDERED: CEFAZOLIN/SWI 2gm 2 GM/20 ML SYR ONE (06:04)
[2021-06-01] MEDS ORDERED: ACETAMINOPHEN 500 MG TAB ONE (06:04)
[2021-06-01] MEDS ORDERED: dexAMETHasone 10 MG/ML VIAL ONE ×2 (06:22→07:18)
[2021-06-01] MEDS ORDERED: MIDAZOLAM HCL 2 MG/2 ML INJ ONE ×2 (06:22)
[2021-06-01] MEDS ORDERED: LIDOCAINE 1% MPF 5 ML VIAL ONE (06:22)
[2021-06-01] MEDS ORDERED: FENTANYL CITR 100 MCG/2 ML ONE ×2 (06:22→08:20)
[2021-06-01] MEDS ORDERED: BUPIVACAINE 0.25% PF 10 ML VIAL ONE (06:23)
[2021-06-01] MEDS ORDERED: LIDOCAINE 2% MPF 5 ML VIAL ONE (06:56)
[2021-06-01] MEDS ORDERED: propofoL 200 MG/20 ML VIAL IV ONE (06:56)
[2021-06-01] MEDS ORDERED: ONDANSETRON 4 MG/2 ML VIAL ONE (06:57)
[2021-06-01] MEDS ORDERED: TRANEXAMIC ACID 1,000 MG in NA CHLORIDE 0.9% 50 ML IV SCH (08:00)
[2021-06-01] MEDS ORDERED: DOCUSATE NA 100 MG CAP PO PRN (09:46)
[2021-06-01] MEDS: HYDROMORPHONE HCL 1 MG/ML INJ ONE ×6 (10:07→11:42)
--- OUTSIDE RECORDS SUMMARY | 2021-06-01 12:58 | XMS REPORT | Continuity of Care Document ---
:[address] [facility] t Address [address] [place] [address] [address]. [address] [place] [address] Care Team Providers Name Role Phone Sylvester Attending Clinician Unavailable Maryuri CRENSHAW Attending Clinician Maryuri West Admitting Clinician Unavailable Problems This patient has no known problems. Allergies, Adverse Reactions, Alerts Allergy Allergy Status Severity Reaction(s) Onset Inactive Treating Comm ents Source Name Type Date Date Clinician NO KNOWN Drug Active [facility] ALLERGIE [facility] Medications This patient has no known medications. Procedures This patient has no known procedures. Encounters Start End Encounter Admission Attending Care Care Encounter Source Date/Time Date/Time Type Type Clinicians Facility Department ID 2021-05-26 Outpatient MIO Phan [facility] [id number] [facility] [address] 13:03:03 [facility] 2019-03-20 2019-03-20 Outpatient MARAL MARQUES [id number] [facility] 12:13:00 15:20:00 EDY [facility] Results This patient has no known results.
[2021-06-01] MEDS ORDERED: ONDANSETRON 4 MG/2 ML VIAL IV PRN (13:45)
[2021-06-01] MEDS ORDERED: ACETAMINOPHEN 500 MG TAB PO PRN (13:45)
--- NOTE | 2021-06-01 13:55 | P.CNS ---
Date of Consult: 06/01/21 Reason for Consult: medical management Requesting Physician: Chris Andrade Primary Care Provider: Sylvester Chief Complaint: s/p right total knee arthroplasty History of Present Illness: Ms. Chamberlain is a 61 yo F with fibromyalgia and CKD 3A who is post op for a right total knee arthroplasty for stage IV osteoarthritis and large knee effusion. She says she has low pain tolerance and is in a moderate amount of pain. She is eating a roll at bedside so that she can take her PO narcotics. She is AOx4 and able to talk in complete sentences. She takes no prescribed home medications. She says she used to take a statin but discontinued it because she read that it would injure her kidneys. She is a former smoker. Vitals reviewed, stable. Consult for medical management. - Past Medical/Surgical History Diabetic: No -: osteoarthritis -: stage 3 chronic kidney disease -: fibromyalgia since 2004 -: childhood heart murmur -: cholecystectomy 2013 -: macular surgery 2014 -: hysterectomy 2002 -: D&C 2002 -: left knee arthroscopic 1992 -: right total knee arthroplasty 2021 - Family History Father Medical History: Lung disease, Other (see notes) Notes: COPD, lung removed Brother Medical History: Heart disease, Other (see notes) Notes: hypothyroid Mother Medical History: Hypertension, Stroke, Kidney disease, Other (see notes) Notes: dialysis, stroke, hypertension, depression - Social History Smoking Status: Former smoker Alcohol use: No CD- Drugs: No Caffeine use: Yes Place of Residence: Home <Peter Harper - Last Filed: 06/01/21 16:21> <Perez Butts - Last Filed: 06/01/21 18:50> Allergies NSAIDS (Non-Steroidal Anti-Inflamma Adverse Reaction (Verified 06/01/21 06:40) Kidney disease Home Medications: Acetaminophen [Tylenol Arthritis] 650 mg PO Q8HP PRN 05/27/21 Calcium Carbonate [Calcium] 500 mg PO DAILY 05/27/21 Cholecalciferol (Vitamin D3) [Vitamin D3] 2,000 unit PO DAILY 05/27/21 Glucos Sul 2Kcl/MSM/Chond/C/Mn [Glucosamine Chondroitin Cap] 1 each PO DAILY 05/27/21 Magnesium Oxide [Magnesium] 250 mg PO DAILY 05/27/21 [place] Oil/[place]-3 Fatty Acids [Sv [place] Oil 1,000 mg Softgel] 1 each PO DAILY 05/27/21 Sour [place] Extract [Tart [place] Extract] 1,000 mg PO DAILY 05/27/21 Zinc 50 mg PO DAILY 05/27/21 Zolpidem Tartrate [Ambien] 3 mg PO BEDTIME PRN PRN 05/27/21 Review of Systems 10-point ROS is otherwise unremarkable General: Unremarkable Eyes: Unremarkable ENT: Unremarkable Respiratory: Unremarkable Cardiovascular: Unremarkable Gastrointestinal: Unremarkable Genitourinary: Unremarkable Musculoskeletal: Leg Pain Integumentary: Unremarkable Neurological: Unremarkable Lymphatics: Unremarkable <Peter Harper - Last Filed: 06/01/21 16:21> Physical Examination Temp Pulse Resp BP Pulse Ox 97 F 73 18 108/55 L 06/01/21 12:41 06/01/21 12:41 06/01/21 12:41 06/01/21 12:41 General: Alert, In no apparent distress, Oriented x3, Cooperative, Obese HEENT: Atraumatic, PERRLA, Mucous membr. moist/pink, EOMI, Sclerae nonicteric Neck: Supple, 2+ carotid pulse no bruit, No LAD, Without JVD or thyroid abnormality Respiratory: Clear to auscultation bilaterally, Normal air movement Cardiovascular: Regular rate/rhythm, Normal S1 S2 Gastrointestinal: Normal bowel sounds, No tenderness Musculoskeletal: Tenderness Integumentary: No rashes Neurological: Normal speech, Normal tone, Sensation intact, Normal affect Lymphatics: No axilla or inguinal lymphadenopathy <Peter Harper - Last Filed: 06/01/21 16:21> Temp Pulse Resp BP Pulse Ox 97.8 F 80 20 120/68 94 06/01/21 16:00 06/01/21 16:00 06/01/21 16:00 06/01/21 16:00 06/01/21 16:00 Laboratory Data (last 24 hrs) 06/01/21 14:06: Sodium 139, Potassium 4.1, BUN 21 H, Creatinine 1.29, Glucose 165 H, Total Bilirubin 0.3, AST 18, ALT 28, Alkaline Phosphatase 80 06/01/21 14:06: WBC 13.70 H D, Hgb 13.3, Hct 40.4, Plt Count 242 <Perez Butts - Last Filed: 06/01/21 18:50> - Problems (1) CKD (chronic kidney disease) Current Visit: Yes Status: Chronic Qualifiers: Chronic kidney disease stage: stage 3 (moderate) Chronic kidney disease stage 3 subtype: stage 3a (GFR 45-59) Qualified Code(s): N18.31 - Chronic kidney disease, stage 3a (2) Fibromyalgia Current Visit: Yes Status: Chronic (3) History of total knee arthroplasty Current Visit: Yes Status: Acute Qualifiers: Laterality: right Qualified Code(s): Z96.651 - Presence of right artificial knee joint Conclusions/Impression: monitor vital signs pain management and antiemetics as needed follow cbc and cmp, lipid and thyroid levels pending DVT ppx Critical Care: No Time Spent Managing Pts care (In Minutes): 45 <Peter Harper - Last Filed: 06/01/21 16:21> Conclusions/Impression: Patient seen and examined at bedside. Plan of care discussed with Peter Harper as noted above Patient appears to be doing well postoperatively, appears comfortable Encouraged incentive spirometer Physical therapy ordered Anticipate discharge home with home health/PT tomorrow, per Ortho <Perez Butts - Last Filed: 06/01/21 18:50>
[2021-06-01 14:21] LABS: Absolute Lymphocytes (CBC) 0.7 K/uL (0.7-4.9); Hematocrit 40.4 % (36.0-45.0); Lymphocytes % 5.3 % (15.3-44.8); MPV 7.4 fL (7.6-11.3); RBC Red Blood Cell Count 4.38 M/uL (3.86-4.86)
[2021-06-01 14:37] LABS: Albumin 3.6 g/dL (3.4-5.0); Bilirubin Total 0.3 mg/dL (0.2-1.0); Potassium 4.1 mmol/L (3.5-5.1); Protein, Total 7.6 g/dL (6.4-8.2)
[2021-06-01 15:22] LABS: Blood Morphology Comment NOT SEEN (NOT SEEN); Platelet Estimate ADEQ; White Blood Cell Scan OK (OK)
[2021-06-01] MEDS ORDERED: INFLUENZA VACCINE (for 6+ mo) 0.5 ML DOSE IMVAC ONE (18:00)
[2021-06-01 18:35] LABS: Urine Appearance CLEAR (Clear); Urine Bilirubin NEGATIVE (Negative); Urine Blood NEGATIVE (Negative); Urine Color YELLOW (Yellow); Urine Glucose NEGATIVE (Negative); Urine Microscopic Reflex NO UMIC; Urine Protein NEGATIVE (Negative); Urine Specific Gravity 1.025 (1.005-1.030); Urine Urobilinogen 0.2 mg/dL (0.2-1.0)
[2021-06-01] MEDS ORDERED: PROMETHAZINE INJ 25 MG/ML AMP IV ONE (19:58)
--- NOTE | 2021-06-01 21:33 | OP ---
Date of Procedure: 06/01/2021 Surgeon: Chris Andrade MD Preoperative Diagnosis: Severe right knee degenerative joint disease with persistent problems despit e extensive conservative management. Postoperative Diagnosis: Severe right knee degenerative joint disease with persistent problems despi te extensive conservative management. Procedure Performed: Right total knee arthroplasty using a [employer] Vanguard system. Estimated Blood Loss: 100 cc. Complications: There were no complications. Indication For Operation: Ms. Chamberlain is a 61-year-old female who has been seeing me as well as multiple other physicians for her right knee. She was originally scheduled for a total knee arthroplasty by at least 2 other surgeons. Unfortunately, one of them was unable to complete that by report, but she still has the same problem and risks, benefits, and alternatives to total knee arthroplasty were aga in discussed with her by me. I spoke with her about this several years ago as well. All of her ques tions have been invited and answered and she agrees to proceed. Description Of Procedure: The patient was taken to the operating room and placed in supine position. General anesthesia was obtained by the staff. Following this, a well-padded tourniquet was placed on superior right thigh. Right lower extremity was then prepped and draped in the usual sterile fash ion for the procedure. Following this, the knee was then elevated, gently exsanguinated with an Brijesh wrap and the knee is flexed. Tourniquet was raised. A standard anterior incision was taken down car efully through the skin and soft tissues. Meticulous hemostasis being maintained using Bovie electro cautery. There was extensive adipose tissue, however, the extensor mechanism was easily exposed and a talat was made at the superior medial pole of the patella. A standard medial parapatellar arthrotom y was then performed with a martinez of normal-appearing synovial fluid. This was followed by some remov al of the fat pad as well as eversion of the patella and reflexion of the knee. The medial and later al menisci were then excised with ACL. Great care is made to protect the patellar tendon. After thi s, the intramedullary alignment guide was placed without difficulty and distal femoral cut was made, it was then sized. Its size is best to a size 62.5. There is a possibility a size [address], however after the cut was made it is felt we could not anteriorly, therefore, we decided to stick with the 67.5. After this the tibia was prepared and cut in standard fashion. Trials were then plac ed to a size 75 tibia and 62.5 femoral trial. This comes to full extension. It may be very slightly tight with flexion, however this is difficult to determine as habitus limits ability to assess this at this level of full flexion. We decided not to cut any more slope. After this, the patella was th en calipered and then cut using a new saw blade. It was then trialed with a trial patella and was fo und to glide excellently. The trial instruments were then removed and the paperboard boxes estimator as well as the tibia being punched. The bone plug was placed and the final components with the exception of the zina yethylene were then cemented with aberrant cement being removed. This was performed with the trial p olyethylene until the cement hardens. It was then brought through a range of motion tested in varus- valgus stress. The patella appears to glide very well. This polyethylene is then selected for the f inal polyethylene and is then cleared without difficulty and the final polyethylene was then placed w ith a locking bar. The wound was again copiously irrigated and the fascia was closed in a watertight fashion using Ethibond sutures followed by closure of the skin using Vicryl followed by tara. Th e patient was then placed in a very well-padded sterile dressing, awakened, and taken to the recovery room in good condition. There were no complications. SE/MODL Voice ID: [id number] Report ID: [id number]
[2021-06-02 06:02] LABS: Absolute Lymphocytes (CBC) 1.1 K/uL (0.7-4.9); MPV 7.5 fL (7.6-11.3); RBC Red Blood Cell Count 4.13 M/uL (3.86-4.86)
--- NOTE | 2021-06-02 06:32 | P.PN ---
Date of Service: 06/02/21 Subjective: Patient's nerve block has been wearing off, did not take pain medication overnight Reports moderate to severe pain this morning Feels Brijesh bandages very tight Concerned about going home no shortness of breath ROS: 10 point ROS as noted above, otherwise negative Physical exam GEN: Alert, oriented, NAD at rest HEENT: Normal conjunctiva, sclera anicteric CV: Regular rate and rhythm, no murmur Pulm: Nonlabored respirations on room air ABD: Soft, nontender, nondistended MSK: RLE: Surgical dressing in place, Brijesh bandage, moves digits Neuro: Normal speech, normal affect Problem List severe arthritis now s/p Total knee arthroplasty Fibromyalgia CKD 3 Vital signs have been stable/within normal limits Main issue at this point has been pain control Continue pain medication per orthopedic surgery Defer patient's several questions regarding right lower extremity, bandaging, etc. to orthopedic surgery Continue Lovenox per surgery Otherwise, patient is medically stable for discharge home. VTE: lovenox Code: full Dispo: Pending orthopedic surgery clearance/ post-op pain control Time Spent Managing Pts Care (In Minutes): 35
[2021-06-02 06:34] LABS: Potassium 4.8 mmol/L (3.5-5.1); Thyroid Stimulating Hormone 0.31 uIU/mL (0.360-3.740)
[2021-06-02] MEDS: ENOXAPARIN 30 MG/0.3 ML SQ SCH ×2 (07:35→17:59)
[2021-06-02] MEDS: HYDROCODONE/APAP 7.5/325 MG TAB PO PRN ×3 (09:56→20:45)
[2021-06-02] MEDS: MORPHINE 4 MG/ML SYR IV PRN ×2 (14:33→18:13)
[2021-06-03] MEDS: HYDROCODONE/APAP 7.5/325 MG TAB PO PRN ×3 (03:28→16:54)
[2021-06-03] MEDS: ONDANSETRON 4 MG/2 ML VIAL IV PRN ×2 (03:37→08:27)
[2021-06-03 06:06] LABS: Hematocrit 35.1 % (36.0-45.0); MPV 7.4 fL (7.6-11.3); RBC Red Blood Cell Count 3.84 M/uL (3.86-4.86)
[2021-06-03] MEDS: ENOXAPARIN 30 MG/0.3 ML SQ SCH ×2 (06:19→16:55)
--- NOTE | 2021-06-03 06:23 | P.PN ---
Date of Service: 06/03/21 Subjective: pain improving, still requiring frequent PO medication anxious about going home reports pain in lower back / tailbone from bed no nausea/vomiting, no shortness of breath ROS: 10 point ROS as noted above, otherwise negative Physical exam GEN: Alert, oriented, NAD at rest HEENT: Normal conjunctiva, sclera anicteric CV: Regular rate and rhythm, no murmur Pulm: Nonlabored respirations on room air ABD: Soft, nontender, nondistended MSK: RLE: Surgical dressing in place, Brijesh bandage, moves toes Neuro: Normal speech, normal affect Problem List severe arthritis now s/p Total knee arthroplasty Fibromyalgia CKD 3 Vital signs have been stable/within normal limits Main issue at this point has been pain control / anxiety Continue pain medication per orthopedic surgery Otherwise, patient is medically stable for discharge home once safe from PT standpoint / off IV meds continue PT VTE: lovenox Code: full Dispo: Pending orthopedic surgery clearance/ post-op pain control likely tomorrow Time Spent Managing Pts Care (In Minutes): 35
[2021-06-03] MEDS: MORPHINE 4 MG/ML SYR IV PRN ×2 (14:21→18:35)
[2021-06-03 20:12] VITALS: BMI 40.2
[2021-06-04] MEDS: MORPHINE 4 MG/ML SYR IV PRN (00:10)
[2021-06-04] MEDS: ENOXAPARIN 30 MG/0.3 ML SQ SCH (05:27)
--- NOTE | 2021-06-04 06:23 | P.PN ---
Date of Service: 06/04/21 Subjective: Improving ROS: 10 point ROS as noted above, otherwise negative Physical exam GEN: Alert, oriented, NAD at rest HEENT: Normal conjunctiva, sclera anicteric CV: Regular rate and rhythm, no murmur Pulm: Nonlabored respirations on room air ABD: Soft, nontender, nondistended MSK: RLE: Surgical dressing in place, Brijesh bandage, moves toes Problem List severe arthritis now s/p Total knee arthroplasty (right) Fibromyalgia CKD 3 Vital signs have been stable/within normal limits pain improving tolerating >100' feet with PT concerned regarding function at home, difficulty lifting leg with belt won't have anyone at night she is trying to contact friends/family to stay overnight at home Continue pain medication per orthopedic surgery patient is medically stable for discharge home once cleared by surgery ivanna send to pharmacy, ivanna coupon card given VTE: lovenox Code: full Dispo: Pending orthopedic surgery clearance/ post-op pain control anticipate dc home today with home heatlh / PT Time Spent Managing Pts Care (In Minutes): 35
[2021-06-04 06:53] LABS: Hematocrit 35.9 % (36.0-45.0)
[2021-06-04 07:12] LABS: Potassium 4.3 mmol/L (3.5-5.1)
[2021-06-04 08:50] VITALS: O2SAT 91
[2021-06-04] MEDS: HYDROCODONE/APAP 7.5/325 MG TAB PO PRN ×2 (09:03→15:00)
[2021-06-04 09:12] VITALS: TEMP 98.2
[2021-06-04 13:51] VITALS: BP 138/72
== END 2021-06-04 16:17 | disposition home health service (06) | DRG 470 ==
LOC: OR 05:32 → 2ND 12:56 → OBSVTOIN 06-02 18:11
PROVIDERS: ADMIT Orthopaedic Surgery; ATTEND Orthopaedic Surgery
PROC: 0SRC0J9 Replacement of Right Knee Joint with Synthetic Substitute, Cemented, Open Approach (ICD-10-PCS; principal; 2021-06-02)
DX: M17.11 Unilateral primary osteoarthritis, right knee (principal); Z68.41 Body mass index [BMI] 40.0-44.9, adult; E66.9 Obesity, unspecified; N18.31 Chronic kidney disease, stage 3a; M79.7 Fibromyalgia; Z90.49 Acquired absence of other specified parts of digestive tract; Z90.710 Acquired absence of both cervix and uterus; Z96.651 Presence of right artificial knee joint; Z87.891 Personal history of nicotine dependence; Z88.8 Allergy status to other drugs, medicaments and biological substances; Z79.899 Other long term (current) drug therapy
CPT/HCPCS: 36415; 71046; 80048; 80053; 80061; 81003; 81015; 84145; 84439; 84443; 85014; 85018; 85025; 85027; 85610; 85730; 86850; 86900; 86901; 88304; 88305; 88311; 93005; 94010; 97110; 97116; 97139; 97161; 97530; C1776; G0378; G0379; J0690; J1100; J1170; J1650; J2250; J2405; J2550; J2704; J3010; J7030

== ENCOUNTER 2021-09-07 08:35 | Day surgery (SDC) | payer SELFPAY ==
[~2021-09-07 08:35] MED LIST: CEFAZOLIN 2 GM IN 0.9% NACL 2 GM/100 ML BAG IV SCH
[2021-09-07] MEDS ORDERED: Ringers Lactate 1,000 ML IV ONE ×2 (09:03→12:27)
[2021-09-07] MEDS ORDERED: DIAZEPAM 5 MG TABLET ONE (09:16)
[2021-09-07] MEDS ORDERED: FENTANYL CITR 100 MCG/2 ML ONE (10:09)
[2021-09-07] MEDS ORDERED: MIDAZOLAM HCL 2 MG/2 ML INJ ONE ×2 (10:09→11:14)
[2021-09-07] MEDS ORDERED: ONDANSETRON 4 MG/2 ML VIAL ONE ×2 (10:09→13:35)
[2021-09-07] MEDS ORDERED: LIDOCAINE 2% MPF 5 ML VIAL ONE (10:09)
[2021-09-07] MEDS ORDERED: propofoL 200 MG/20 ML VIAL IV ONE (10:09)
[2021-09-07] MEDS ORDERED: SUCCINYLCHOLINE 20 MG/ML (10 ML) IV ONE (10:55)
--- NOTE | 2021-09-07 11:04 | P.BOP ---
Preoperative diagnosis: right stiffness of knee after TKA Postoperative diagnosis: same Primary procedure: right total knee JUNO Estimated blood loss: 0 ccs Anesthesia: General Complications: None Transferred to: Recovery Room Condition: Good
[2021-09-07] MEDS: HYDROMORPHONE HCL 1 MG/ML INJ ONE ×5 (11:12→11:37)
[2021-09-07] MEDS ORDERED: HYDROMORPHONE HCL 1 MG/ML INJ ONE (11:23)
[2021-09-07] MEDS: FENTANYL CITR 100 MCG/2 ML ONE ×2 (11:55→12:05)
[2021-09-07] MEDS: MEPERIDINE HCL 25 MG/ML SYR ONE ×2 (12:20→12:25)
[2021-09-07 17:15] VITALS: BP 150/79; TEMP 97.6; O2SAT 100
--- NOTE | 2021-09-07 21:37 | OP ---
Date of Procedure: 09/07/2021 Surgeon: Chris Andrade MD Preoperative Diagnosis: Right knee stiffness and arthrofibrosis after total knee arthroplasty. Postoperative Diagnosis: Right knee stiffness and arthrofibrosis after total knee arthroplasty. Procedure: Right total knee manipulation under anesthesia. Estimated Blood Loss: 0 cc. Complications: There were no complications. Specimen: No pathology specimen sent. Indications: Ms. Chamberlain is a patient who underwent a right total knee arthroplasty by me. She had quit e a bit of difficulty postoperatively, at least in initial phases with problems with pain and stated inability to bend or straighten her knee. She did go to physical therapy and did work diligently, ho martell, may have started this a little later than desired, but she was able to achieve approximately 9 0 degrees of passive flexion and approximately 85 degrees of active flexion. She came to see me in m y office and she says she could get greater than 9 degrees in therapy, however, she would rapidly los e this and she was frustrated with her inability to bend it and also with continued pain. We discuss ed in great detail what we could do to perhaps increase the amount of flexion as she does have full k nee extension. We could follow a stepwise way of trying to achieve greater flexion to begin with is a manipulation under anesthesia, if this is not helpful then proceed with arthroscopy for lysis of ad hesions, if this is not helpful then proceed with lateral release, if this is not helpful then procee d with a quadriceps plasty. She has consented for this entire possible plan prior to surgery. She u nderstands the risks, benefits, and alternatives and all of her questions were answered. Description Of Procedure: The patient was taken to the operating room and placed in supine position. General anesthesia was obtained by staff. Following this, muscle relaxant was then used. After th is her knee was brought up, allowing for gravity and she comes to approximately 90 degrees. This was compared to her contralateral side and there is a significant difference being flexion to approximat kacie 120 degrees on the contralateral side. After she has achieved paralyzation, a standard gentle th ough firm flexion was then performed and there appeared to be some small release of the adhesions and with over pressure she can now come to greater than 120 degrees. With hip flexion, the knee can fle x to 110 degrees with gravity assist. Decision was made not to proceed with any type of open procedu re including arthroscopy or lateral release or lysis of adhesions. She was then gently placed in Brijesh wrap, which is slightly anchored at her ankle, however, it does not tighten much around her thigh. We are going to leave her in this degree of flexion as she goes to the recovery room. We will most l ikely remove that in the recovery room. We will speak with her regarding the possibility of staying the night. /TESFAYE Voice ID: [id number] Report ID: [id number]
== END 2021-09-07 17:00 | disposition home or self-care (01) ==
LOC: OR 08:35
PROVIDERS: ATTEND Orthopaedic Surgery
PROC: 0SNCXZZ Release Right Knee Joint, External Approach (ICD-10-PCS; principal; 2021-09-07 10:00)
DX: M24.661 Ankylosis, right knee (principal); Z96.651 Presence of right artificial knee joint; Z20.822 Contact with and (suspected) exposure to COVID-19
CPT/HCPCS: 97116; 97161; 97530; J0330; J0690; J1170; J2175; J2250; J2405; J2704; J3010; J7120; U0003